=== PATIENT | female | born 1965 | race African-American/Black ===

== ENCOUNTER → 2016-11-08 | Day surgery (SDC) | payer OTHER ==
[~2016-11-08] VITALS: Ht 165.1 cm; Wt 79.9 kg
[2016-11-08 07:40] LABS: ALBUMIN 4.3 g/dL (3.5-5.0); BILIRUBIN - TOTAL 0.5 mg/dL (0.1-1.0); CREATININE 0.9 mg/dL (0.5-1.0); GLOBULIN (CALCULATION) 3.1 g/dL (2.2-4.2); POTASSIUM 3.9 mmol/L (3.5-5.1); TOTAL PROTEIN 7.4 g/dL (6.4-8.3)
[2016-11-08 07:44] LABS: HCT 42.5 % (37.0-47.0); HGB 14.5 g/dl (12.5-16.0); MCH 30.5 pg (25.0-31.0); MCHC 34.1 g/dL (32.0-36.0); MCV 89.3 fL (78.0-100.0); MPV 8.9 fL (6.0-9.5); RBC 4.76 M/uL (4.20-5.40); RDW 12.5 % (11.5-14.0); WBC 4.9 K/uL (4.0-10.5)
== END | disposition home or self-care (01) ==
LOC: FAS 07:12
PROVIDERS: Surgery
DX: K64.8 Other hemorrhoids (principal); Z86.010 Personal history of colon polyps; I10 Essential (primary) hypertension; E03.9 Hypothyroidism, unspecified; M19.90 Unspecified osteoarthritis, unspecified site; Z90.710 Acquired absence of both cervix and uterus; Z88.0 Allergy status to penicillin; Z91.040 Latex allergy status
CPT/HCPCS: 36415; 80053; J2704

== ENCOUNTER 2020-06-17 16:55 | Emergency (ER) | payer OTHER ==
[2020-06-17] MEDS ORDERED: FLEXERIL5 MG PO (20:28)
[2020-06-17] MEDS ORDERED: MEDROL 4MG DOSEP4 MG PO (20:28)
== END 2020-06-17 20:52 | disposition home or self-care (01) ==
LOC: FER 16:55
DX: M54.2 Cervicalgia (principal); G89.29 Other chronic pain; R20.2 Paresthesia of skin; I10 Essential (primary) hypertension; Z88.0 Allergy status to penicillin; Z91.040 Latex allergy status
CPT/HCPCS: 99283; J1100